=== PATIENT | female | born 1955 | race Caucasian/White ===

== ENCOUNTER 2017-04-18 20:01 | Emergency (ER) | payer BC ==
[2017-04-18 20:12] VITALS: BP 121/84; PULSE 84; TEMP 97.4; BMI 29.2
--- NOTE | 2017-04-18 20:15 | PDOC ---
History of Present Illness - General History Source: Patient Exam Limitations: No Limitations - History of Present Illness Initial Comments: 04/18/17 20:20 The patient is a 61 year old female with no significant past medical history, who presents to the ED with Redness and swelling around cut to hand of right finger. Patient states she was using a knife when she cut herself last Wednesday. Patient used bacitracin and put on a bandaid. Patient denies any pus. Patient denies pain with movement of the finger. Denies any history of MRSA. No history of finger infections in the past. Patient denies fever, chills, nausea, vomiting, diarrhea. PCP: Dr. Whelan <Agustin Rene - Last Filed: 04/18/17 20:37> <Carlita Quintanilla - Last Filed: 04/22/17 03:39> - General Chief Complaint: Injury Stated Complaint: POSSIBLE INFECTION TO RIGHT MIDDLE FINGER Time Seen by Provider: 04/18/17 20:05 Past History <Agustin Rene - Last Filed: 04/18/17 20:37> <Carlita Quintanilla - Last Filed: 04/22/17 03:39> - Past Medical History Allergies/Adverse Reactions: Allergies Allergy/AdvReac Type Severity Reaction Status Date / Time No Known Allergies Allergy Verified 04/18/17 20:03 Home Medications: Ambulatory Orders Amlodipine Besylate 5 mg PO DAILY 04/18/17 Cephalexin Monohydrate [Keflex -] 500 mg PO Q8H #15 capsule 04/18/17 Hydrochlorothiazide [Hctz -] 12.5 mg PO DAILY 04/18/17 Ranitidine HCl [Zantac] 150 mg PO DAILY 04/18/17 Review of Systems - Review of Systems Able to Perform ROS?: Yes Comments:: 04/18/17 20:20 GENERAL/CONSTITUTIONAL: No fever or chills. No weakness. HEAD, EYES, EARS, NOSE AND THROAT: No change in vision. No ear pain or discharge. No sore throat. CARDIOVASCULAR: No chest pain or shortness of breath. RESPIRATORY: No cough, wheezing, or hemoptysis. GASTROINTESTINAL: No nausea, vomiting, diarrhea or constipation. GENITOURINARY: No dysuria, frequency, or change in urination. MUSCULOSKELETAL: No joint or muscle swelling or pain. No neck or back pain. SKIN: + cut to the right hand middle finger. NEUROLOGIC: No headache, vertigo, loss of consciousness, or change in strength/ sensation. ENDOCRINE: No increased thirst. No abnormal weight change. HEMATOLOGIC/LYMPHATIC: No anemia, easy bleeding, or history of blood clots. ALLERGIC/IMMUNOLOGIC: No hives or skin allergy. <Agustin Rene - Last Filed: 04/18/17 20:37> *Physical Exam - Vital Signs Last Vital Signs Temp Pulse Resp BP Pulse Ox 97.4 F L 84 18 121/84 98 04/18/17 20:07 04/18/17 20:07 04/18/17 20:07 04/18/17 20:07 04/18/17 20:07 - Physical Exam Comments: 04/18/17 20:20 GENERAL: The patient is awake, alert, and fully oriented, in no acute distress. HEAD:[Normal with no signs of trauma. EYES: Pupils equal, round and reactive to light, extraocular movements intact, sclera anicteric, conjunctiva clear. EXTREMITIES: Normal range of motion, no edema. NEUROLOGICAL: Normal speech, normal gait. PSYCH: Normal mood, normal affect. SKIN: Right hand middle finger: 1.5 cm x 1.5 cm erythematous edematous mildly indurated area of the radial aspect of the DIP joint with central linear healing laceration. No fluctuation no discharge. No lymphangitic streaking. No pain with passive or active range of motion. Rest of skin is unremarkable. <Agustin Rene - Last Filed: 04/18/17 20:37> Medical Decision Making - Medical Decision Making Documentation has been prepared under my direction and personally reviewed by me in its entirety. I attest that this documented accurately reflects all work, treatment, procedures and medical decision making performed by me. As noted above, this 61-year-old woman presents with edematous/erythematous area surrounding healing laceration of the right middle finger. Patient sustained a laceration when she cut herself while cooking several days prior to presentation. On exam, there is localized inflammation and tenderness but no evidence of fluctuance/abscess or tenosynovitis. Patient will be started on Keflex 500 mg 3 times a day for 5 days. She should follow-up with her PMD, Dr. Whelan in 3 days for wound check. She has worsening of her symptoms prior to that, she should return to the emergency room. <Carlita Quintanilla - Last Filed: 04/22/17 03:39> *DC/Admit/Observation/Transfer - Attestations Scribe Attestion: 04/18/17 20:20 Documentation prepared by Agustin Rene, acting as medical technologist chemistry for Carlita Quintanilla MD. <Agustin Rene - Last Filed: 04/18/17 20:37> <Carlita Quintanilla - Last Filed: 04/22/17 03:39> Diagnosis at time of Disposition: Posttraumatic wound infection - Discharge Dispostion Disposition: HOME Condition at time of disposition: Stable - Prescriptions Prescriptions: Cephalexin Monohydrate [Keflex -] 500 mg PO Q8H #15 capsule - Referrals Referrals: Renny Whelan MD [Primary Care Provider] - 1 week - Patient Instructions Printed Discharge Instructions: DI for Wound Infection Additional Instructions: Keflex 500 mg 3 times a day for 5 days Warm soaks/bacitracin to wound Return to ER if you have increasing redness/swelling/pain or develop discharge/ red streaking/fever Follow-up with Dr. Whelan within the next 3 days
[2017-04-18] MEDS ORDERED: CEPHALEXIN MONOHYDRATE 500 MG CAPSULE (UD) PO ONE (20:24)
[2017-04-18] MEDS ORDERED: CEPHALEXIN MONOHYDRATE 500 MG CAPSULE (UD) ONE (20:29)
== END 2017-04-18 20:39 | disposition home or self-care (01) ==
LOC: FER 20:01
DX: L08.9 Local infection of the skin and subcutaneous tissue, unspecified (principal)
CPT/HCPCS: 99281-25